=== PATIENT | female | born 1930 | race Caucasian/White ===

== ENCOUNTER 2017-01-21 09:28 | Inpatient (IN) | payer MEDICARE, OTHER ==
[~2017-01-21] VITALS: Ht 154.9 cm; Wt 56.2 kg
--- NOTE | ~2017-01-21 | HP ---
PATIENT'S NAME: TERRI CHEEMA [facility] AGE: 86 Y [address] ROOM: [place] [id number] LOCATION: [facility] ADMIT DATE: 01/21/2017 History & Physical DISCHARGE DATE: FAMILY PHYSICIAN: PHYSICIAN, UNKNOWN ATTENDING PHYSICIAN: Doris Pierre DATE OF SERVICE: 01/21/2017 PATIENT IDENTIFICATION: Terri Cheema is an 86-year-old female referred from [facility]. REASON FOR REFERRAL: Brain hemorrhage. HISTORY OF PRESENT ILLNESS: The patient states that she fell while trying to get out of bed this morning. There was no loss of consciousness. The patient was taken to [facility] where she had a head CT scan done. The CT scan showed a small left thalamic hemorrhage. The patient was therefore transferred here for further evaluation and treatment. The patient is on Coumadin and INR is 3.2. PAST MEDICAL HISTORY: Not available at this time. CURRENT MEDICATIONS AND ALLERGIES: Other than Coumadin the rest of the patient's drugs is not known at this time. FAMILY HISTORY: No family history relevant to present problems. SOCIAL HISTORY: The patient lives at home with her . She is still driving. REVIEW OF SYSTEMS: A 10-point review of systems was carried out. The only abnormal finding was as described in the history of present illness. PHYSICAL EXAMINATION: GENERAL: The patient is an elderly female who was alert and cooperative throughout the examination. VITAL SIGNS: Her blood pressure was initially elevated, but she had some medicine at [facility] and the blood pressure came down. According to the transfer notes, 187/125, heart rate 53. NEUROLOGIC: Speech is coherent, but slightly slurred. The patient is PATIENT'S NAME: TERRI CHEEMA [facility] AGE: 86 Y [address] ROOM: [id number] [place] [id number] LOCATION: [facility] ADMIT DATE: 01/21/2017 History & Physical DISCHARGE DATE: FAMILY PHYSICIAN: PHYSICIAN, UNKNOWN ATTENDING PHYSICIAN: Doris Pierre oriented. Cranial nerves, the patient has a right facial droop. Motor examination, the patient has right upper extremity and right lower extremity weakness. She is at least antigravity in the right leg, but less so in the right arm. HEENT: Her head is atraumatic. Eyes and ears, no evidence of trauma. SKIN: No skin rashes or skin masses. CARDIOVASCULAR: Heart sounds present. RESPIRATORY: The patient is not short of breath at bedside. REVIEW OF IMAGING STUDIES: The patient has had a head CT scan done. The head CT scan shows a left thalamic hemorrhage. There is no midline shift or mass effect. ASSESSMENT: An 86-year-old female with left thalamic bleed causing right hemiparesis. PLAN: The patient is being admitted for blood pressure control. She will also get some INR to reverse her Coumadin. There is no indication for neurosurgical intervention at this time. I will follow the patient while she is in hospital. MD SANDOR CYR/cristóbal /[id number] D: [id number] T: [id number] HISTORY & PHYSICAL
--- NOTE | ~2017-01-21 | CON ---
PATIENT'S NAME: TERRI CHEEMA [facility] AGE: 86 Y [address] ROOM: [id number] [place] [address] LOCATION: GICU ADMIT DATE: 01/21/2017 Consultation DISCHARGE DATE: FAMILY PHYSICIAN: Everton Gould MD ATTENDING PHYSICIAN: Doris Pierre REFERRING PHYSICIAN: Kain Stone MD A consult for Dr. Pierre. HISTORY OF PRESENT ILLNESS: This pleasant, 86-year-old lady, who lives with her here in [place], is referred for rehab/GIRP evaluation, admitted on 01/21/2017 status post a falling incident at home. She did not hit her head, and she did not lose consciousness. CT scan showed left thalamic hemorrhage, was watched carefully. 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 She finds herself less able to remember names, very little slurring of speech. Voice is clear and not wet. She is minimally numb on the right upper lip on the outside, feeling like she is lagging a little bit behind in movement. No visual cut. No neglect at the present time. Denied any headaches. No dizziness. No nausea. No vomiting. She is markedly weak in the right upper extremity and practically trace movement; and right lower extremity, she is 3 to 3+ at best. She has good bowel and bladder control. Denied any chest pain. No shortness of breath. PAST HISTORY OF SIGNIFICANCE: 1. Coronary artery disease, status post stenting x3. 2. Atrial fibrillation, now in sinus rhythm. 3. 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 4. Dyslipidemia. 5. Hypertension. 6. Status post renal artery stenting. PHYSICAL EXAMINATION: GENERAL: She is alert, oriented. Cannot sometimes name, anomia. VITAL SIGNS: Blood pressure 173/84, temperature 98.3, pulse 57, and respiration rate 13. She is 5 feet 1 inch tall and weighs 56.8 kg. PATIENT'S NAME: TERRI CHEEMA [facility] AGE: 86 Y [address] ROOM: [id number] [place] [address] LOCATION: [facility] ADMIT DATE: 01/21/2017 Consultation DISCHARGE DATE: FAMILY PHYSICIAN: Everton Gould MD ATTENDING PHYSICIAN: Doris Pierre MEDICATIONS: She is on the following medications: 1. Catapres. 2. Tylenol. 3. Lisinopril. 4. Zofran. 5. Morphine sulfate. 6. NaCl 0.9%. 7. Nitroglycerin. ASSESSMENT AND PLAN: She is now on PT, OT, and speech, which I will continue. I feel that this lady will benefit from intensive rehabilitation for about 2 to 3 weeks, aiming to discharge at modified independence. All the above was explained to her. She should not drive until she is re-evaluated. Thank you for this referral. I will take her as soon as I have an opening. MD MOHSEN GUZMÁN/modl /[id number] d: 01/24/17 1315 t: 01/24/17 1709, CONSULTATION REPORT
--- NOTE | ~2017-01-21 | CON ---
PATIENT'S NAME: TERRI CHEEMA [facility] AGE: 86 Y [address] ROOM: [place] [address] LOCATION: GICU ADMIT DATE: 01/21/2017 Consultation DISCHARGE DATE: FAMILY PHYSICIAN: PHYSICIAN, UNKNOWN ATTENDING PHYSICIAN: Doris Pierre DATE OF CONSULTATION: 01/21/2017 REASON FOR CONSULTATION: Blood pressure management in the setting of intracranial hemorrhage. HISTORY OF PRESENT ILLNESS: An 86-year-old very pleasant lady, presented to the [facility], and subsequently transferred here. When she got up this morning, could not get out of the bed and fell and hit her head as well. Shortly after, the noted that she was having difficulty finding words as well as drooping of her right face. A CAT scan was done at the [facility], which I do not have the report yet, but per chart review and verbally, it appears that she had right thalamic bleeding. She was transferred here for further medical care. On my encounter, she is very anxious about the whole situation. She denied any headache, any trouble with the eyes, any trouble swallowing, any chest pain, any shortness of breath, any headache, any abdominal pain, any constipation, any diarrhea, any burning on urination, or any extremity swelling. Her only complaint is that she is having difficulty finding words to express herself. She is very anxious to get out of the bed, walk, and do her daily activities. REVIEW OF SYSTEMS: All other systems reviewed and were negative except what is mentioned in the HPI. PAST MEDICAL HISTORY: Significant for: 1. Coronary artery disease with coronary stenting 3 times in the past. 2. Atrial fibrillation. Rhythm control as well as on oral anticoagulation with Coumadin levels of 3.1 today. 3. 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 4. Hyperlipidemia. 5. Hypertension. 6. Previous renal stents as well. MEDICATIONS: We are reconciling medications at this moment. PATIENT'S NAME: TERRI CHEEMA [facility] AGE: 86 Y [address] ROOM: [place] [address] LOCATION: GICU ADMIT DATE: 01/21/2017 Consultation DISCHARGE DATE: FAMILY PHYSICIAN: PHYSICIAN, UNKNOWN ATTENDING PHYSICIAN: Doris Pierre FAMILY HISTORY: Significant for coronary artery disease in mother, father, as well as brother. ALLERGIES: NO KNOWN DRUG ALLERGIES. SOCIAL HISTORY: Never a smoker. No alcohol or drug abuse. PHYSICAL EXAMINATION: VITAL SIGNS: Blood pressure on my encounter was 123/80, 62, 99% on room air, 16. GENERAL: In mild acute distress due to this situation. HEAD: No deformity noted. EYES: Nonicteric. No pallor. OROPHARYNX: Moist mucous membranes. CARDIOVASCULAR: Bradycardic. S1 and S2. No murmurs, gallops, or rubs. LUNGS: Clear to auscultation bilaterally. ABDOMEN: Soft, nontender, and nondistended. Bowel sounds are present. EXTREMITIES: No clubbing, cyanosis, or edema. NEUROLOGIC: Right facial droop noted. Power 5/5 in all extremities. PSYCHIATRIC: Anxious. Otherwise, appropriate speech. MUSCULOSKELETAL: No muscle tenderness or swelling noted. ASSESSMENT/PLAN: 1.ICH 2.Hypertensive emergency Continue nicardipine gtt. until swallow testing is done. Will follw MD MIRANDA ARORA/cirstóbal /[id number] d: 01/21/17 1717 t: 01/22/17 0821, CONSULTATION REPORT
--- NOTE | ~2017-01-21 | DS ---
PATIENT'S NAME: TERRI CHEEMA [facility] AGE: 86 Y [address] ROOM: [id number] [place], [place] [address] LOCATION: GICU ADMIT DATE: 01/21/2017 Discharge Summary DISCHARGE DATE: 01/29/2017 FAMILY PHYSICIAN: Everton Gould MD ATTENDING PHYSICIAN: Doris Pierre REASON FOR ADMISSION: The patient presented with having fallen at home. She was initially taken to [facility] and head CT scan showed a brain hemorrhage, and she was therefore transferred to [facility] for further treatment. On examination, the patient had a right facial droop and weakness in the right upper and lower extremities. Imaging studies performed. Head CT scan showed a left thalamic hemorrhage. TREATMENT RENDERED: The patient was admitted to hospital for control of blood pressure, and she was gently treated by Neurosurgery and hospitalist. Over the next couple of days, the patient's speech improved and her weakness also got better. By the 29 of January, she had met the requirements for transfer to inpatient rehab and was transferred on that day. The patient to be followed up in the Neurosurgery Clinic after release from rehab to determine how much recovery she got back. DORIS PIERRE MD CNO/modl /[id number] d: 02/15/175 t: 02/21/17 1614, DISCHARGE SUMMARY
[~2017-01-21 09:28] MED LIST changes: -ALLERGY RELIEF25 MG PO; -ASPIRIN (CHILDR81 MG PO; -COLACE100 MG PO; -COUMADIN **IA2.5 MG PO; -DULCOLAX10 MG R; -K-TAB 10MEQ10 MEQ PO; -LEVOTHROID (SY50 MCG PO; -MILK OF MA400 MG/5 M PO; -MYLICON OR GAS-80 MG PO; -NORVASC5 MG PO; -PEPCID20 MG PO; -PRAVACHOL40 MG PO; -PRINIVIL (ZESTR20 MG PO; -ZANTAC150 MG PO
[2017-01-21 17:56] LABS: INR - (THERAPEUTIC) 1.66 (0.92-1.07); PROTIME 17.5 SECONDS (9.8-11.4)
[2017-01-21] MEDS ORDERED: PRAVACHOL40 MG PO (19:14)
[2017-01-21] MEDS ORDERED: LEVOTHROID (SY50 MCG PO (19:15)
[2017-01-21] MEDS ORDERED: ZANTAC150 MG PO (19:16)
[2017-01-21] MEDS ORDERED: ALLERGY RELIEF25 MG PO (19:19)
[2017-01-22 05:17] LABS: BASOPHIL % 0.5 %; EOSINOPHIL # 0.1 K/uL (0.0-0.5); EOSINOPHIL % 1.9 %; HEMOGLOBIN 13.4 g/dL (10.0-15.0); IMMATURE GRANULOCYTE % 0.3 %; LYMPHOCYTE # 1.3 K/uL (0.8-4.0); MCH 32.6 pg (27.0-34.0); MCHC 32.7 gm/dL (32.0-36.5); MCV 99.8 fl (83.0-98.0); MONOCYTE # 0.6 K/uL (0.0-1.0); MONOCYTE % 10.6 %; MPV 8.7 fl (9.4-12.4); NEUTROPHIL # (ANC) 3.7 K/uL (1.8-7.8); NEUTROPHIL % 63.7 %; NRBC % 0 /100WBC (0-0.00); PLATELET COUNT 240 K/uL (150-450); WBC 5.8 K/uL (4.0-11.0)
[2017-01-22 05:18] LABS: RBC 4.11 M/uL (3.00-5.00)
[2017-01-22 05:31] LABS: ANION GAP 12.4 (10.0-19.0); BLOOD UREA NITROGEN 19 mg/dL (6-24); CALCIUM 8.2 mg/dL (8.5-10.5); CHLORIDE 109 mMol/L (96-110); CO2 23 mMol/L (22-32); CREATININE 0.7 mg/dL (0.5-1.1); ESTIMATED GFR (MDRD EQUATION) > 60; POTASSIUM 3.4 mMol/L (3.7-5.1); SODIUM 141 mMol/L (135-145)
[2017-01-22] MEDS ORDERED: COUMADIN **IA2.5 MG PO (16:38)
[2017-01-24 12:54] LABS: INR - (THERAPEUTIC) 1.01 (0.92-1.07); PROTIME 10.6 SECONDS (9.8-11.4)
[2017-01-24 12:59] LABS: ANION GAP 11.7 (10.0-19.0); CALCIUM 8.2 mg/dL (8.5-10.5); MAGNESIUM 2.1 mg/dL (1.8-2.6); POTASSIUM 3.7 mMol/L (3.7-5.1)
== END 2017-01-29 10:00 | DRG 86 ==
LOC: GICU 09:57
PROVIDERS: Internal Medicine; Nurse Practitioner Family; ADMIT Neurological Surgery
PROC: 30233K1 Transfusion of Nonautologous Frozen Plasma into Peripheral Vein, Percutaneous Approach (ICD-10-PCS; principal; 2017-01-21)
PROC: 30233K1 Transfusion of Nonautologous Frozen Plasma into Peripheral Vein, Percutaneous Approach (ICD-10-PCS; 2017-01-22)
DX: S06.300A Unspecified focal traumatic brain injury without loss of consciousness, initial encounter (principal); G81.91 Hemiplegia, unspecified affecting right dominant side; I48.0 Paroxysmal atrial fibrillation; W06.XXXA Fall from bed, initial encounter; I10 Essential (primary) hypertension; I25.10 Atherosclerotic heart disease of native coronary artery without angina pectoris; I16.0 Hypertensive urgency; R47.1 Dysarthria and anarthria; R29.810 Facial weakness; E78.5 Hyperlipidemia, unspecified; E03.9 Hypothyroidism, unspecified; R79.1 Abnormal coagulation profile; Z85.3 Personal history of malignant neoplasm of breast; Z79.01 Long term (current) use of anticoagulants; Z95.5 Presence of coronary angioplasty implant and graft; Z95.828 Presence of other vascular implants and grafts; Z82.49 Family history of ischemic heart disease and other diseases of the circulatory system
CPT/HCPCS: A9270; J7030; J7050; J7060; P9017

== ENCOUNTER → 2017-01-21 | Outpatient (CLI) | payer MEDICARE, OTHER ==
[~2017-01-21] MED LIST: ACETAMINOPHEN1 EACH PO; ACETAMINOPHEN500 M1 PO; ALLERGY RELIEF25 MG PO; APRESOLINE10 MG PO; ASPIR 8181 MG PO; ASPIRIN (CHILDR81 MG PO; CENTRUM COMPLE1 EACH PO; COLACE100 MG PO; CORDARONE,PACE200 MG PO; COUMADIN **IA2.5 MG PO; COUMADIN2.5 MG PO; DULCOLAX10 MG R; K-TAB 10MEQ10 MEQ PO; LEVOTHROID (SY50 MCG PO; MILK OF MA400 MG/5 M PO; MYLICON OR GAS-80 MG PO; NITROSTAT0.4 MG SL; NORVASC5 MG PO; OSCAL + D500 MG PO; PEPCID20 MG PO; PLAVIX75 MG PO; PRAVACHOL40 MG PO; PRINIVIL (ZESTR20 MG PO; PROTONIX40 MG PO; ZANTAC150 MG PO; ZOCOR20 MG PO; ZOLOFT25 MG PO
== END | disposition disaster alternative care site (69) ==
LOC: GAMB 09:30
DX: I63.9 Cerebral infarction, unspecified (principal); G81.90 Hemiplegia, unspecified affecting unspecified side; Z79.01 Long term (current) use of anticoagulants; Z79.899 Other long term (current) drug therapy
CPT/HCPCS: A0425; A0428

== ENCOUNTER → 2017-01-21 | Outpatient (CLI) | payer MEDICARE, OTHER | END | disposition disaster alternative care site (69) | LOC: GAMB 07:56 | DX: R53.1 Weakness (principal); E11.9 Type 2 diabetes mellitus without complications; R41.0 Disorientation, unspecified; R47.81 Slurred speech; R29.810 Facial weakness; Z90.11 Acquired absence of right breast and nipple; Z79.899 Other long term (current) drug therapy; W19.XXXA Unspecified fall, initial encounter | CPT/HCPCS: A0422; A0425; A0427; A0428; J7030 ==

== ENCOUNTER 2017-01-29 10:26 | Inpatient (IN) | payer MEDICARE, OTHER ==
[~2017-01-29] VITALS: Ht 152.4 cm; Wt 55.6 kg
--- NOTE | ~2017-01-29 | CON ---
PATIENT'S NAME: TERRI CHEEMA [facility] AGE: 86 Y [address] ROOM: [id number] [place], [place] [address] LOCATION: [facility] ADMIT DATE: 01/29/2017 Consultation DISCHARGE DATE: FAMILY PHYSICIAN: Everton Gould MD ATTENDING PHYSICIAN: Kain Stone DATE OF CONSULTATION: 02/12/2017 REFERRING PHYSICIAN: Doris Pierre MD REQUESTING PHYSICIAN: Kain Stone MD. DATA: The patient was seen today on a one-to-one. The case was discussed with the nurse for vital signs and collateral information. The patient is an 86-year- old, female, currently admitted to [facility] at an inpatient rehab. DIAGNOSIS: At time of this evaluation, adjustment disorder with depression. RECOMMENDATION: After talking to the patient about risks, benefits, and side effects, she voiced understanding, consent, and preference for a trial on mirtazapine 15 mg every nighttime. HISTORY OF PRESENT ILLNESS: This lady ended up in the hospital recently after falling from her bed, ended up having an intracranial hemorrhage, confirmed by a CT scan, and having issues with her gait. The patient has been since sad. There was a trial on Lexapro, that did not go too well, so a psychiatric consultation was requested. I came to [facility], reviewed electronic records, the paper records, talked to the nurse for collateral information, talked to Dr. Stone for collateral information, and finally I see the patient on a one-to-one. The patient is a nice lady who is cooperative, and she states that since actually falling and staying in the hospital, she is getting somewhat depressed. She thinks she is getting better, but again she is having issues with her sleep and appetite and almost daily crying. She says that that has never happened before that and she blames the lack of sleep. The patient has never been psychotic, manic, or hypomanic. No issues with obsession and compulsion, eating disorder, post traumatization, or gambling. At the present time, she is not on any psychotropic medication. SUBSTANCE USE HISTORY: Noncontributory. The patient is not a smoker, a drinker, or a drug user. PATIENT'S NAME: TERRI CHEEMA [facility] AGE: 86 Y [address] ROOM: [place] [address] LOCATION: [facility] ADMIT DATE: 01/29/2017 Consultation DISCHARGE DATE: FAMILY PHYSICIAN: Everton Gould MD ATTENDING PHYSICIAN: Kain Stone PAST PSYCHIATRIC HISTORY: Noncontributory. The patient has never been seen in an inpatient psychiatric facility and has never tried to kill herself. No therapy or psychotropic medication at the present time. MEDICAL HISTORY: Per H and P of Dr. Stone and Dr. Pierre. PERSONAL HISTORY: She is from [place]. 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 HISTORY OF ABUSE: Noncontributory. The patient has never been abused physically, sexually, or psychologically. FAMILY HISTORY: Noncontributory. MENTAL STATUS EXAMINATION: This is a lady who is cooperative, good hygiene, good eye contact. No psychomotor agitation or retardation. Speech is normal in volume, tone, and production. Mood is described as depressed. Affect is broad and appropriate to thought content. Thought content is relevant by the patient denying any suicidal or homicidal ideation, denying any auditory or visual hallucination, denying any delusional thoughts. Thought was coherent, congruent. No loosening of association. Insight and judgment seem to be fair. Memory is within normal limits. She is alert and oriented. Intelligence is average. STRENGTHS: Intelligence, access to services. BARRIERS: None currently other than physical health. AFTAB MENDEZ MD HG/modl PATIENT'S NAME: TERRI CHEEMA [facility] AGE: 86 Y [address] ROOM: [place] [address] LOCATION: [facility] ADMIT DATE: 01/29/2017 Consultation DISCHARGE DATE: FAMILY PHYSICIAN: Everton Gould MD ATTENDING PHYSICIAN: Kain Stone /[id number] d: 02/12/172004 t: 02/17/17 0751, CONSULTATION REPORT
--- NOTE | ~2017-01-29 | CON ---
PATIENT'S NAME: TERRI CHEEMA [facility] AGE: 86 Y [address] ROOM: [id number] [place], [place] [address] [facility] ADMIT DATE: 01/29/2017 Consultation DISCHARGE DATE: FAMILY PHYSICIAN: Everton Gould MD ATTENDING PHYSICIAN: Kain Rowe DATE OF CONSULTATION: 01/29/2017 REFERRING PHYSICIAN: Doris Pierre MD TEAM MEMBERS REPORTING: Include Dr. Rowe; Gabi Phelps, social insurance adviser; Dian Juárez, RN; Anna Maki, PT; Mariza Astorga, PT; Kassie Tripp, OT; Crystal Kaye, Speech Therapy; Madeleine Underwood, therapeutic rec; and Sister Tara Alvarenga, pastoral Care. CURRENT STATUS: Terri is an 86-year-old woman, admitted to our inpatient rehab unit on January 29, 2017 following a CVA with right-sided weakness. 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 The patient is continent of bowel and bladder. Her bottom is red. Takes Tylenol occasionally for headache. The patient can complete all of her transfers at minimal assistance. She can ambulate 80 feet with minimal assistance. If the patient turns, she requires more of a moderate assistance level. Her goals have been set for standby to mod I. The patient can dress her upper body at minimal assistance; grooming, minimal assistance; and toilet transfers, minimal assistance. She is moderate assistance for toileting. She does occasionally lose her balance. Her goals for OT have been set for mod I, comprehension is at standby assistance, language and expression, minimal assistance. She is on a mechanical soft, nectar thickened liquid diet. The patient is open to pastoral care. DISCHARGE PLAN: The patient is receiving 3 hours of PT, OT, and speech Friday through Friday. The patient has daily rehab, nursing, and physiatry involvement as well as therapeutic recreational services 4 days per week. The patient has shown functional improvement and is progressing. Please see her plan of care for specific goals. Plan is for patient to discharge in approximately 4 weeks. Plan is for patient to return to home with her if at all possible. GABI PHELPS FOR KAIN ROWE MD PATIENT'S NAME: TERRI CHEEMA [facility] AGE: 86 Y [address] ROOM: [place] [address] [facility] ADMIT DATE: 01/29/2017 Consultation DISCHARGE DATE: FAMILY PHYSICIAN: Everton Gould MD ATTENDING PHYSICIAN: Kain Rowe TD/kapill /[id number] d: 02/03/17 1058 t: 03/07/17 1137, CONSULTATION REPORT
--- NOTE | ~2017-01-29 | CON ---
PATIENT'S NAME: TERRI CHEEMA [facility] AGE: 86 Y [address] ROOM: [address] [place], [place] [address] LOCATION: [facility] ADMIT DATE: 01/29/2017 Consultation DISCHARGE DATE: FAMILY PHYSICIAN: Everton Gould MD ATTENDING PHYSICIAN: Kain Rowe DATE OF CONSULTATION: 02/18/2017 REFERRING PHYSICIAN: Doris Pierre MD TEAM MEMBERS REPORTING: Dr. Rowe; Gabi Phelps, psychiatric social worker; Kari Nuñez, RN; Anna Maki, PT; Mariza Astorga, PT; Kassie Tripp, OT; Crystal Kaye, Speech Therapy; Madeleine Underwood, therapeutic rec; and Sister Tara Kiser, Pastoral Care. CURRENT STATUS: Terri is an 86-year-old woman, admitted to our inpatient rehab unit following a CVA. The patient is currently continent of bowel and bladder. She is on a regular diet. Prealbumin is 27, takes healthy shakes twice a day, but has been refusing. She can walk 150 feet at standby assistance using a front- wheeled walker. She requires contact guard assistance using a single-point cane. She can climb 12 stairs at contact guard assistance. She has met 4/4 short-term PT goals. The patient can dress her upper body at minimal assistance; lower body, standby; grooming and bathing, standby; toilet and shower transfers, contact guard assistance; toileting, contact guard assistance to standby assistance; and feeding, standby assistance. She has met 1/13 long-term OT goals. Comprehension is standby; language expression mod I; memory and problem solving, standby to mod I; swallowing, standby to mod I, occasional coughing; car transfers are currently contact guard assistance. DISCHARGE PLAN: The patient is receiving 3 hours of PT/OT, and speech Friday through Friday. The patient has daily rehab, nursing, and physiatry involvement as well as therapeutic recreational services. The patient has shown functional improvement and is progressing. Please see her plan of care for specific goals. Plan is for patient to discharge in approximately 10 to 14 days. Plan is for patient to return to home with her . GABI PHELPS FOR KAIN ROWE MD TD/modl PATIENT'S NAME: TERRI CHEEMA [facility] AGE: 86 Y [address] ROOM: [place] [address] LOCATION: [facility] ADMIT DATE: 01/29/2017 Consultation DISCHARGE DATE: FAMILY PHYSICIAN: Everton Gould MD ATTENDING PHYSICIAN: Kain Rowe /[id number] d: 02/23/171810 t: 03/07/17 1145, CONSULTATION REPORT
--- NOTE | ~2017-01-29 | CON ---
PATIENT'S NAME: TERRI CHEEMA [facility] AGE: 86 Y [address] ROOM: [address] [place] [address] LOCATION: [facility] ADMIT DATE: 01/29/2017 Consultation DISCHARGE DATE: FAMILY PHYSICIAN: Everton Gould MD ATTENDING PHYSICIAN: Kain Rowe DATE OF CONSULTATION: 02/11/2017 REFERRING PHYSICIAN: Doris Pierre MD TEAM MEMBERS REPORTING: Dr. Rowe; Gabi Phelps, social services specialist; Kari Nuñez, RN; Anna Maki, PT; Mariza Astorga, PT; Kassie Tripp, OT; Crystal Musa, Speech Therapy; Madeleine Underwood, therapeutic rec; and Sister Tara Kiser, [facility]. CURRENT STATUS: Terri is an 86-year-old woman, admitted to our inpatient rehab unit following a CVA with right hemiplegia. The patient has been very labile. Psychiatric consult has been ordered to see if there is a medication that the patient can be started on to assist with this. The patient is continent of bowel and bladder. Takes Tylenol at bedtime. She can transfer, sit to supine and supine to sit at standby. Sit to stand and stand to sit, contact guard assistance and bed to chair and chair to bed, contact guard assistance. She can walk 150 feet with handheld assistance at minimal assistance. Balance is improving. She can climb 4 stairs with 2 railings at minimal assistance. She has met 3/4 short-term PT goals. The patient can dress her upper body and lower body, standby. She can groom independently from a seated position. Bathing, standby. Toilet and shower transfers, contact guard assistance. Toileting, contact guard assistance. Her right arm is improving. She has met 4/5 short-term OT goals. Comprehension is at standby to mod I; language and expression, standby with word finding; memory, standby; and problem solving, minimal to standby. Family training went well. They do plan on taking her on outing. The patient continues to work on coordination with her right hand. DISCHARGE PLAN: The patient is receiving 3 hours of PT, OT, and speech Friday through Friday. The patient has daily rehab, nursing, and physiatry involvement as well as therapeutic recreational services. The patient has shown functional improvement and is progressing. Please see her plan of care for specific goals. Plan is for the patient to discharge in approximately 2 weeks. GABI PHELPS FOR KAIN ROWE MD PATIENT'S NAME: TERRI CHEEMA [facility] AGE: 86 Y [address] ROOM: [place] [address] LOCATION: [facility] ADMIT DATE: 01/29/2017 Consultation DISCHARGE DATE: FAMILY PHYSICIAN: Everton Gould MD ATTENDING PHYSICIAN: Kain Rowe TD/cristóbal /[id number] d: 02/23/17 1807 t: 03/07/17 1143, CONSULTATION REPORT
--- NOTE | ~2017-01-29 | CON ---
PATIENT'S NAME: TERRI CHEEMA [facility] AGE: 86 Y [address] ROOM: [address]3441 [place] [address] LOCATION: [facility] ADMIT DATE: 01/29/2017 Consultation DISCHARGE DATE: FAMILY PHYSICIAN: Everton Gould MD ATTENDING PHYSICIAN: Kain Rowe DATE OF CONSULTATION: 02/05/2017 REFERRING PHYSICIAN: Doris Pierre MD TEAM MEMBERS REPORTING: Include Dr. Rowe; Gabi Phelps, social worker assistant; Kari Nuñez, RN; Anna Maki, PT; Mariza Astorga, PT; Kassie Tripp, OT; Crystal Kaye, Speech Therapy; Madeleine Underwood, Therapeutic Rec; and Sister Tara Alvarenga, Pastoral Care; and Soraida from Pharmacy. CURRENT STATUS: Kavya Lucas is an 86-year-old woman, admitted to our inpatient rehab unit on January 29, 2017, following a left thalamic stroke. She has a history of atrial fibrillation and coronary artery disease. 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 The patient is occasionally incontinent of bowel and bladder. She does have some edema, rarely complains of pain. She is on a mechanical soft diet with nectar thickened liquids. She takes a health shake b.i.d. Her prealbumin is 24. She can transfer sit to supine and supine to sit at standby, sit to stand and stand to sit, contact guard assistance; and bed to chair and chair to bed, contact guard assistance. She can walk 50-75 feet hand-held assistance or using a front-wheeled walker at minimal assistance. She can climb 4 stairs with 2 railings at minimal assistance. The patient's mood is very labile. She has met 1/9 short-term PT goals. The patient can dress her upper body at minimal assistance, lower body moderate assistance; grooming, standby; bathing standby, toilet and shower transfers, minimal assistance; and toileting, max assistance. Her goals have been set for standby assistance and she has met 3/6 short-term OT goals. The patient's comprehension is at minimal assistance to standby assistance due to poor processing. Language and expression, standby. Memory minimal assistance. Problem solving, minimal assistance. She does cough occasionally. We are going to advance her diet to regular. The patient has been very open to pastoral care. Pharmacy continues to watch medications. DISCHARGE PLAN: The patient is receiving 3 hours of PT, OT, and speech Friday through Friday. The patient has daily rehab nursing and Physiatry involvement as well therapeutic recreational services. The patient has shown functional PATIENT'S NAME: TERRI CHEEMA [facility] AGE: 86 Y [address] ROOM: [place] [address] LOCATION: [facility] ADMIT DATE: 01/29/2017 Consultation DISCHARGE DATE: FAMILY PHYSICIAN: Everton Gould MD ATTENDING PHYSICIAN: Kain Rowe and is progressing. Please see her plan of care for specific goals. Plan is for patient to discharge in approximately 3 weeks. Plan is for patient hopefully to be able to return to home with her here in [place]. The patient's may need additional assistance depending on how the patient progresses. GABI PHELPS FOR KAIN ROWE MD TD/modl /[id number] d: 02/23/17 1656 t: 03/07/17 1140, CONSULTATION REPORT
--- NOTE | ~2017-01-29 | HP ---
PATIENT'S NAME: TERRI CHEEMA [facility] AGE: 86 Y [address] ROOM: [place] [address] LOCATION: [facility] ADMIT DATE: 01/29/2017 History & Physical DISCHARGE DATE: FAMILY PHYSICIAN: Everton Gould MD ATTENDING PHYSICIAN: Kain Stone DATE OF SERVICE: HISTORY OF PRESENT ILLNESS: This 86-year-old lady is admitted for continuous medical treatment and intensive rehabilitation to rehab unit at [facility] on 01/29/2017. 1. Unstable gait. 2. Dependent in activities of daily self-care. 3. Status post left thalamic hemorrhagic stroke with history of falling at home and hitting her head. 4. With marked weakness in the right upper more than right lower extremity with slurring of speech, decreased attention to the right side, and slight facial droop on the right side with the onset. PHYSICAL EXAMINATION: GENERAL: She is, at the present time, alert, fairly well oriented on admission. VITAL SIGNS: Blood pressure 163/72, temperature 97.6, pulse 57, and respiration rate 16. She is 5 feet 1 inch and weighs 56.2 kg. ALLERGIES: SHE IS ALLERGIC TO OMEPRAZOLE AND PROTON PUMP INHIBITORS. PAST MEDICAL HISTORY: Past history of significant as follows: 1. Coronary artery disease, status post coronary vessels x3 stenting. 2. Atrial fibrillation. 3. 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 4. Dyslipidemia. 5. Hypertension. 6. Status post previous renal artery stenting. 7. History of recurrent hypoxia. 8. History of bilateral mastectomy, no recurrence. ASSESSMENT AND PLAN: She is, at the present time, weightbearing as tolerated, and upon evaluation by Speech, it is recommended that she will have a mechanical soft diet with nectar thick liquids. Continue Hernandez water protocol. She has been having PATIENT'S NAME: TERRI CHEEMA [facility] AGE: 86 Y [address] ROOM: [place] [address] LOCATION: [facility] ADMIT DATE: 01/29/2017 History & Physical DISCHARGE DATE: FAMILY PHYSICIAN: Everton Gould MD ATTENDING PHYSICIAN: Kain Stone swallowing problems for quite some time, even before the onset of the present symptoms. She will be admitted for intensive rehabilitation and continuous medical treatment, put on PT, OT, and speech 3 hours per day, 15 hours per week, for about 3 weeks, aiming to discharge home at modified independence. Today and on 01/30, her vitals were as follows: Blood pressure 91/48, temperature 97.8, pulse 84, respiration rate 16. Her CBC is as follows: White BC 5.9, RBC 3.83, hemoglobin 12.9, hematocrit 38.5, and platelets 258. CMS: Sodium 141, potassium 3.5, chloride 107, CO2 of 28, BUN 29, creatinine 1.0, and glucose 89. UA is within normal limits. Prealbumin is 24. She could ambulate 20 feet and 30 feet x1 with a paco-walker and cuing moderate for safety. We will put on intensive PT, OT, and speech 3 hours per day, 15 hours per week for the coming 3 weeks, aiming to discharge at modified independence. We will keep on Dr. Pierre and hospitalist census to follow as necessary. All the above was explained to her in detail. She verbalized understanding and agreement with plan of care. MD MOHSEN GUZMÁN/cristóbal /[id number] D: 229 T: 319 HISTORY & PHYSICAL
--- NOTE | ~2017-01-29 | CON ---
PATIENT'S NAME: TERRI CHEEMA [facility] AGE: 86 Y [address] ROOM: G3441 [place], [place] [address] LOCATION: [facility] ADMIT DATE: 01/29/2017 Consultation DISCHARGE DATE: 02/28/2017 FAMILY PHYSICIAN: Everton Gould MD ATTENDING PHYSICIAN: Kain Rowe DATE OF CONSULTATION: 02/25/2017 REFERRING PHYSICIAN: Doris Pierre MD TEAM MEMBERS REPORTING: Dr. Rowe; Gabi Phelps, executive secretary social welfare; inpatient rehab nursing staff; Anna Maki, PT; Mariza Astorga, PT; Kassie Tripp, OT; Crystal Kaye, Speech Therapy; Madeleine Underwood, therapeutic rec; and Sister Tara Kiser, [facility]. CURRENT STATUS: Terri is an 86-year-old woman, admitted to our inpatient rehab unit following a CVA. The patient is currently continent of bowel and bladder. No skin issues. She is on a regular diet currently at low nutritional risk. She can complete all of her transfers at mod I. She can complete ambulation 300 feet to 400 feet with a front-wheeled walker at mod I. She can climb 12 stairs with two railings at contact guard assistance. She can use a cane with standby assistance. PT is recommending a walker overall and supervision in her home. She has met 3/3 short-term PT goals. The patient can dress her upper and lower body at standby, grooming and bathing standby, toilet and shower transfers standby, toileting standby, and feeding standby. She has met 3/13 long-term OT goals. Comprehension is at standby to mod I. Language and expression, standby to mod I. Memory and problem solving, standby to mod I. Car transfers are currently standby to mod I. DISCHARGE PLAN: The patient is receiving 3 hours of PT, OT, and Speech Friday through Friday. The patient has daily rehab nursing and physiatry involvement as well as therapeutic rec services. The patient has shown functional improvement and is progressing. Please see her plan of care for specific goals. Plan is for patient to discharge on Tuesday, February 28, 2017, with home health care. GABI PHELPS FOR KAIN ROWE MD TD/modl PATIENT'S NAME: TERRI CHEEMA [facility] AGE: 86 Y [address] ROOM: [place] [address] LOCATION: [facility] ADMIT DATE: 01/29/2017 Consultation DISCHARGE DATE: 02/28/2017 FAMILY PHYSICIAN: Everton Gould MD ATTENDING PHYSICIAN: Kain Rowe /[id number] d: 03/17/172319 t: 03/31/17 1127, CONSULTATION REPORT
--- NOTE | ~2017-01-29 | DS ---
PATIENT'S NAME: TERRI CHEEMA [facility] AGE: 86 Y [address] ROOM: [address] [place] [address] LOCATION: [facility] ADMIT DATE: 01/29/2017 Discharge Summary DISCHARGE DATE: 02/28/2017 FAMILY PHYSICIAN: Everton Gould MD ATTENDING PHYSICIAN: Kain Rowe This lady, who is 86 years old, was admitted to rehab unit on 01/29/2017, was discharged to go home with Home Health on 02/28/2017. She was admitted with unstable gait, dependent activity of daily and self- care. Status post left thalamic hemorrhagic stroke, retrobulbar with inability to perform with the right upper and lower extremity, slurring of speech, facial weakness, and some disorientation. She is at the present time doing well, alert and oriented x3. She is at the present time on the following medications: 1. Tylenol Extra Strength 500 mg at bedtime. 2. Cordarone 100 mg daily. 3. Norvasc 5 mg p.o. daily, hold if systolic blood pressure below 120. 4. Aspirin 81 mg p.o. daily. 5. Os-Lamont Plus D 500 mg p.o. daily. 6. Colace 100 mg p.o. daily. 7. Lovenox versus Coumadin per couture dressmaker, hospitalist, and its dosing and followup for PT and INR. 8. Pepcid 20 mg p.o. daily. 9. Levothroid 50 mcg p.o. at bedtime. 10. Lisinopril 20 mg p.o. daily. 11. Micro-K 40 mEq p.o. daily. 12. Pravachol 40 mg p.o. daily. 13. Tylenol 500 to 1000 q.6 hours, do not exceed acetaminophen 4 grams in q.24 hours, give for 30 days. 14. Dulcolax suppository 10 mg rectally p.r.n. 15. MOM 30 mL twice daily p.o. 16. Mylicon or Gas-X 80 mg p.o. daily as needed. 17. Benadryl 25 mg q.12 hours as needed. She was given Home Health PT/OT and Speech plus 8 three times per week for 4 weeks. I will see her thereafter. Follow up with her family physician as soon as possible. Follow up with Dr. Suarez as he sees fit. PATIENT'S NAME: TERRI CHEEMA [facility] AGE: 86 Y [address] ROOM: [address] [place] [id number] LOCATION: [facility] ADMIT DATE: 01/29/2017 Discharge Summary DISCHARGE DATE: 02/28/2017 FAMILY PHYSICIAN: Everton Gould MD ATTENDING PHYSICIAN: Kain Rowe Should not drive and/or operate any mechanical device until she is reevaluated. Again, Coumadin or Lovenox as per couture dressmaker and dosing and followup on the PT and INR. She should follow with her family physician for all medications, renewals, and change of medication. All the above was explained to her in detail. She verbalized understanding and agreement. KAIN ROWE MD WMS/modl /[id number] d: 02/28/17 2353 t: 03/04/17 1139, DISCHARGE SUMMARY
[~2017-01-29 10:26] MED LIST changes: +ALLERGY RELIEF25 MG PO; +COUMADIN **IA2.5 MG PO; +LEVOTHROID (SY50 MCG PO; +PRAVACHOL40 MG PO; +ZANTAC150 MG PO
--- NOTE | 2017-01-29 12:43 | NUR ---
Patient arrived to [facility] at 1010. She was previously admitted to [facility] following and ICH. She has an IC in her right FA- SL. Alert and oriented x3. Denies current pain, however states she has had intermittent WATTS since admission. States she has N/T to her right arm and leg. Decreased sensation is also noted on the right side of body compared to the left. NIHSS- 7 r/t facial droop, drifting of right arm and leg. Ataxia x2. Decreased sensation on the right side of body. Slight slurring with speech- worsens when patient is tired. Lungs are clear and slightly dimnished in the bases- RA. Bowel sounds are active. Voids per bathroom. Slight reddness to buttocks. 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 1+ pulses throughout. Tearful on admission- was admitted to another hospital the night before and the patient is worried. Pleasant and cooperative with cares.
[2017-01-29 14:34] LABS: BILIRUBIN URINE NEGATIVE (NEGATIVE); BLOOD URINE NEGATIVE /UL (NEGATIVE); COLOR URINE YELLOW (YELLOW); GLUCOSE URINE NEGATIVE (NEGATIVE); KETONE URINE NEGATIVE (NEGATIVE); LEUKOCYTES URINE NEGATIVE /UL (NEGATIVE); NITRITE URINE NEGATIVE (NEGATIVE); PROTEIN URINE NEGATIVE (NEGATIVE); SPEC GRAVITY URINE 1.015 (1.003-1.035); TURBIDITY URINE CLEAR (CLEAR); UROBILINOGEN URINE NORMAL (NORMAL)
--- NOTE | 2017-01-29 17:05 | NUR ---
Significant Event: Patient is alert and oriented x3. Denies WATTS this shift. N/T to right side of body. NIHSS- 7. See neuro. Lungs are clear and slightly diminished in the bases. RA. Bowel sounds are active. Voids per bathroom. Ambulates with 1-2 assist, gb and walker. Right side- N/T, Drift to right leg and arm. No edema present. Pulses palpable. Slurring speech. Sling to right arm for comfort. Swallows pills whole. PIV to right FA- SL. Tearful today. Her was admitted to another hospital for illness making her upset. Family at bedside. Pleasant and cooperative with cares. Follow up:
[2017-01-30 04:24] LABS: BASOPHIL # 0.1 K/uL (0.0-0.2); BASOPHIL % 0.8 %; EOSINOPHIL # 0.2 K/uL (0.0-0.5); EOSINOPHIL % 3.4 %; HEMATOCRIT 38.5 % (30.0-46.0); HEMOGLOBIN 12.9 g/dL (10.0-15.0); IMMATURE GRANULOCYTE % 0.7 %; LYMPHOCYTE # 1.6 K/uL (0.8-4.0); LYMPHOCYTE % 26.3 %; MCH 33.7 pg (27.0-34.0); MCHC 33.5 gm/dL (32.0-36.5); MCV 100.5 fl (83.0-98.0); MONOCYTE # 0.6 K/uL (0.0-1.0); MONOCYTE % 10.9 %; MPV 8.9 fl (9.4-12.4); NEUTROPHIL # (ANC) 3.4 K/uL (1.8-7.8); NEUTROPHIL % 57.9 %; NRBC % 0 /100WBC (0-0.00); PLATELET COUNT 258 K/uL (150-450); RBC 3.83 M/uL (3.00-5.00); RDW-CV 14.8 % (11.9-14.6); WBC 5.9 K/uL (4.0-11.0)
[2017-01-30 04:42] LABS: ALBUMIN 3.4 gm/dL (3.5-5.0); ANION GAP 9.5 (10.0-19.0); CALCIUM 8.6 mg/dL (8.5-10.5); POTASSIUM 3.5 mMol/L (3.7-5.1); TOTAL BILIRUBIN 0.5 mg/dL (0.0-1.5); TOTAL PROTEIN 6.7 g/dL (6.0-8.4)
--- NOTE | 2017-01-30 05:06 | NUR ---
Significant Event: denies pain. up to bathroom with wheelchair and 1 assist. transfers fair. has r) sided weakness. glove to r) hand. weak r) hand grasp. slight droop to r) mouth. speech slurred and has difficulty with word finding at times. anxious and sad at times about diagnosis. SL to r) forearm. lung sounds clear/dim in bases. had moderate bm. continent of bowel and bladder. a/o x3. Follow up:
--- NOTE | 2017-01-30 17:48 | NUR ---
Significant Event:PATIENT ALERT THIS SHIFT. IS FORGETFUL AT TIMES. VSS. BP LOW, ORDER RECEIVED FOR PARAMETERS FOR BP MEDS. BP MEDS HELD THIS AM. SALINE LOCK IN RIGHT FOREARM. HAS TOLERATED THERAPY WITHOUT DIFFICULTY. RESTS IN CHAIR OR BED BETWEEN THERAPIES. STARTED ON POTASSIUM TODAY FOR A LOW POTASSIUM. GIVE MEDS WHOLE 1 AT A TIME IN APPLESAUCE. MONITOR VOICE AND HAVE HER CLEAR HER THROAT IF SHE SOUNDS OFF AFTER MEDS. HAS A FREQUENT COUGH. NO OTHER COMPLAINTS. Follow up:
[2017-01-31 00:30] LABS: BILIRUBIN URINE NEGATIVE (NEGATIVE); BLOOD URINE NEGATIVE /UL (NEGATIVE); COLOR URINE YELLOW (YELLOW); GLUCOSE URINE NEGATIVE (NEGATIVE); KETONE URINE NEGATIVE (NEGATIVE); LEUKOCYTES URINE 100 /UL (NEGATIVE); NITRITE URINE NEGATIVE (NEGATIVE); PROTEIN URINE NEGATIVE (NEGATIVE); SPEC GRAVITY URINE 1.015 (1.003-1.035); TURBIDITY URINE 1+ (CLEAR); UROBILINOGEN URINE NORMAL (NORMAL)
[2017-01-31 00:43] LABS: AMORPHOUS URINE 1+ (NEGATIVE); BACTERIA URINE RARE (NEGATIVE); RBC URINE NEGATIVE #/HPF (NEGATIVE)
--- NOTE | 2017-01-31 04:03 | NUR ---
Significant Event:Up with 1-2 assist and use of hemiwalker, does lean to the right and drags right foot with ambulation. Continent with voids, small bm last evening. UA shows 100 leukocytes and 5-10 wbc's. Numbness to right arm/hand and leg. Saline lock removed from rt forearm last evening due to redness/firm area to site. Did warm pack bilat forearms (left arm has red, tender, firm area as well) from former IV sites. Meds whole in applesauce. [place] thick/mech soft diet with worley water protocol as well. Takes regular water without difficulty. Head of bed up 30 degrees for 30-45 min after meals/meds. Edema glove to right hand. 159/80. Rt mouth drooping. No pain. Follow up:Warm moist packs to bilat forearms at prior IV sites. Assist with oral intake.
[2017-01-31 05:23] LABS: ALBUMIN 3.2 gm/dL (3.5-5.0); ANION GAP 10.1 (10.0-19.0); CALCIUM 8.6 mg/dL (8.5-10.5); POTASSIUM 4.1 mMol/L (3.7-5.1); TOTAL BILIRUBIN 0.4 mg/dL (0.0-1.5); TOTAL PROTEIN 6.4 g/dL (6.0-8.4)
--- NOTE | 2017-01-31 14:59 | NUR ---
[facility] Case Management Prefunctioning and Psycho-Social Initial Assessment for 01/29/17 and Discharge Note for 01/29/2017 D: Initial Media Production Support ManagerNews Videographer and Discharge Note. I: Input from: patient, family, Gabi Abraham LCSW R: Reason for admission: left intracranial hemorrhage/thalamic bleed, right hemiparesis. Admission Date to [facility]: 01/29/2017 Admission Date to Hospital: 01/21/2017 Prior level of functioning: patient was independent with adl's and household prior to stroke. Prior living situation: one story house with basement Financial resources/expectations: patient has Medicare and [employer]. Resources used: none. Resources available: HHC, outaptietn therapy, SNF, [facility], [facility]. Family support available: kids, Understands nature of health condition: yes Recognizes impact of health condition on lifestyle: yes Vocational/Educational: retired Behavior/Emotional needs: cues for safety. Monitor for signs and symptoms of depression and anxiety. Legal concerns: none. Discharge goal: home in approx. 4 weeks. Assessment: Shayy is a 86 year old woman from [place], [place] admitted after a stroke. Has good family support. Plan is for aptient to remain on [facility] for approx. 4 weeks. Will follow. Orientation to the program and CM services completed with Shayy. Initial plan of care and estimated length of stay discussed, disclosure statement reviewed including patient assessment rights. P: Target date and individual goals established. Please see POC for details. For additional information please see Nursing Data Base, PT, OT, TR, ST, Initial assessments to [facility].
--- NOTE | 2017-01-31 20:58 | NUR ---
Significant Event:PATIENT ALERT AND ORIENTED THIS SHIFT. VSS. TRANSFERS WTIH 1 ASSIST, GAIT BELT AND HEMIWALKER. DENIED PAIN ALL SHIFT. TOLERATING THERAPIES FAIRLY WELL. COMPLAINED OF FEELING TIRED AND FATIGUED THIS AM. THINKS SHE SHOULD BE DOING BETTER. ENCOURAGED HER TO SEE THE PROGRESS AND TAKE IT ONE DAY AT A TIME. NO OTHER COMPLAINTS. TAKES MEDS WHOLE WITH APPLESAUCE BUT SPEECH INSTRUCTED TO TRY PUDDING INSTEAD. Follow up:
--- NOTE | 2017-02-01 06:47 | NUR ---
ignificant Event: A/O. 1 assist transfer w/ paco walker and gaitbelt. some word finding issues. Aphaisic. Castillo water protocol. Mechanical soft and nectar thick liquids. VSS on room air. Edema glove to right hand. Right side weakness. Left arm tender from previous IV site. Right foot drags when ambulating, occassionally. Meds whole in pudding. Monitor for voice change during meds and encourage to swallow, allow extra time. Exercises posted in room to work on through the weekend. Denies physical pain but she has emotional pain from not being able to do for herself and her family. Many tears during the night. Bed alarm on. Call light in reach. Follow up:Exercises. 1:1 supervision with meals. [place] thick liquids. Castillo WAter Protocol.
--- NOTE | 2017-02-01 15:17 | NUR ---
Significant Event:Alert and orientated, daughter here majority of the shift, good support. Family visitors came for several hours noon/after. Continues to deny pain. Still impatient with her progress, encourage on what she can do. Pt has to up for meals, watch in DR. Hanks, some word finding difficulty. Right hand edema glove. Takes meds 1 @ a time, best with pudding, break Calcium med in 1/2. Encourage exercises left in room per therapy for pt to work on. Monitor old IV site has sml nodule. Dom protocol. Pt has been pleasant and cooperative with plan of care. Follow up:.monitor voice change, encouarage exercises left in rm per therapy, meds whole with vanilla pudding.
--- NOTE | 2017-02-02 04:20 | NUR ---
Significant Event: A&Ox3, VSS on room air. Repositions self in bed. Right sided weakness. Transfers with 1PA hemiwalker/GB to bathroom. Unsteady gait, hands on at night. [place] thick liquids. Meds one at a time with pudding. Rested well this shift. Follow up: continue with plan of care.
--- NOTE | 2017-02-02 15:13 | NUR ---
Significant Event:No changes in assessment. Remains alert and orientated. Family here again, pt reports she had great visit, and made her tired, went to bed to rest this afternoon. Denies pain. Watch in DR for meals, up for meals. Aphasia, some word find difficulty.Right hand edema glove. Takes meds 1 @ a time with pudding or applesauce. Break large pills in 1/2. Dom protcol. Pt has been pleasant and coopertive with plan of care. Up with 1 assist, paco walker/GB. Necter thick liquids. Follow up:monitor voice change, encourage exercises left in rm per therapy, meds whole with vanilla pudding or applesauce.
--- NOTE | 2017-02-03 04:01 | NUR ---
Pt is alert and oriented to person and place this shift. Pt was unsure of the day but knew it was January of 2017. Pt had trouble recalling who the president was and then her told her. Pt has denied pain this shift and refused pain medication offered. Pt was 1 assist ambulating to the batheroom with paco walker. Pt was unsteady on her feet and her right leg would try to give out while ambulating but she was able to recover. has edema glove to right hand. Pt is Hard of hearing but able to make needs known.
--- NOTE | 2017-02-03 08:58 | NUR ---
A-SCREENED D/T LOS; NEW ADMIT TO [facility] S/P CVA W/SOME APHASIE. WEARS AN EDEMA GLOVE ON R)HAND HT: 60 IN. CBW (STANDING SCALE): 52.9; ADMIT WT (BED SCALE): 52.2 KG BMI: 22.4 LABS REVIEWED: PREALB 24.0 (WNL) MEDS: KCL, ZESTRIL, PEPCID, COLACE, PRAVACHOL, OSCAL+D, PRN BOWEL MEDS DIET RX: MECHANICAL SOFT/NECTAR THICK WITH HEALTH SHAKES BID. PO INTAKE SINCE ADMIT TO REHAB HAS BEEN 50-75%. EST NUTR. NEEDS: 8964-1180 KCALS (25-30 KCALS/KG) 53-64 GM PROTEIN (1.0-1.2 GM/KG) 1 ML FLUID/KCAL D-NOT AT NUTRITION RISK; NO NUTRITION DX IDENTIFIED I-CONTINUE W/HEALTH SHAKES BID TO MAINTAIN NUTR. STATUS M/E-GOAL: PO INTAKE >/=50% FOR DURATION OF ADMIT 1)F/U PO INTAKE, WT, LABS, AND POC IN 7-9 DAYS 2)ASSIST NEEDED
--- NOTE | 2017-02-03 16:01 | NUR ---
Significant Event:PATIENT ALERT BUT IS FORGETFUL. VSS. TRANSFERS WITH 1 ASSIST, GAIT BELT AND WALKER. RIGHT FOOT DRAGS SOME WHEN WALKING BUT OVERALL MORE STEADY THAN ON FRIDAY. DENIES PAIN. WANTS A SHOWER TONIGHT. ASKED FOR ONE THIS AM AT 0820 BUT EXPLAINED THAT IT WOULD HAVE TO BE LATER IN THE DAY DUE TO THERAPIES. NO OTHER COMPLAINTS. Follow up:
--- NOTE | 2017-02-04 05:55 | NUR ---
Alert and oriented. Forgetful at times. Up with one assist and walker. Denies need for pain meds. Refused HS suppository as she states it would keep her up. Would like to take it earlier in the day today after therapies if needed. and daughters here to visit. Slept well.
--- NOTE | 2017-02-04 08:32 | NUR ---
D: Therapeutic Recreation Initial Assessment on the 02/04/17. I: Patient seen for 2 units at 830 to begin initial evaluation. Pt has dx of intracranial hemorrhage. R: Patient's current living situation and status: condo Home entrance steps: 0 Living with: Spouses name: José # of children: 4 (1 close by) Driving: yes, (spouse can't drive) Ambulating: I Equipment: N/A Hand Dominance: Right Machine Joint Cutter strength: R) side weakness Eye sight: glasses Reading ability: fair > good Hearing: [place], has aides Speech: slight slur Cognition: impaired Comprehension: fair Following directions: yes Initiating: yes Eye contact: good Affect: bright COMMUNITY INVOLVEMENT: grocery shopping, care for daughter, restoration, out to eat, restoration [place], visit friends, coffee monthly with group LEISURE INTERESTS: nice!, garden, yard work, some TV, read (newspaper (2)), sit outdoors, past needle work Patient is referred by medical staff for treatment and evaluation in the following areas: Community Skills, Functional Leisure Skills, Participation, Leisure Education/Behaviors, Family Education, Emotional. Information obtained: Interview, Chart Review, Observation, other. BARRIERS TO LEISURE: Financial, Physical, Lifestyle (reports problems with depression) Transportation Patient determined to be: APPROPRIATE FOR THERAPEUTIC RECREATION ASSESSMENT. TREATMENT WILL INCLUDE: Community living skills training Functional leisure development Physical skills development Cognitive skills development Social skills development Leisure education Emotional/behavioral adaptation Family education Community resources/packet TARGET EQUIPMENT/INFORMATION: Parking Permit HAS IN PLACE Community Resources Energy conservation in community setting Van/Service/Taxi Scrip Adapted Leisure Equipment Stress management/Relaxation techniques Functional car transfers Leisure Education Behaviors: Attitude, Awareness, Participation. Patient functional skills level and potential: Guarded, pt demonstrates poor mobility with concerns for coping per pt's report. Patient oriented ot TR services on Rehab unit. Pt/family provided input into goals setting and plan of care. Pt's goal is to return home. P: Target date set with personal goals established. Will continue with POC focusing on pt/family training and education. For additional information please see Nursing Data Base, PT, OT, CM, ST, initial assessments to [facility] and Interdisciplinary Assessments.
--- NOTE | 2017-02-04 16:58 | NUR ---
Significant Event:PATIENT ALERT BUT IS FORGETFUL. VSS. TRANSFERS WITH 1 ASSIST, GAIT BELT AND WALKER. SPEECH CONTINUING TO WORK WITH PATIENT AND EATING. HAS DENIED PAIN ALL SHIFT. TOLERATING THERAPIES WITHOUT DIFFICULTY. DID GET VERY UNSTEADY ONCE GOING TO THE BATHROOM AND NEARLY FELL. NEEDS TO BE REMINDED TO INDUSTRIAL AUTOMATION SPECIALIST HER RIGHT FOOT SO IT DOESN'T DRAG. Follow up:
--- NOTE | 2017-02-05 02:35 | NUR ---
Alert and oriented. Calls for assistance as needed. Up with one assist, gaitbelt and walker. Rt sided weakness with rt foot drop. Hand grasp in rt is improing. Speech working with pt. Takes meds with [place] pudding. Denies need for pain meds. and daughters here daily.
--- NOTE | 2017-02-05 14:49 | NUR ---
Significant Event:Pt alert, orientated to self, and place, forgetful @ times, needs reinforcement. Transfers with 1 assist, walker/gait belt. Apashic, has problems with word search @ times. Right foot drags when ambulates, remind to picking tech, has right side weakness. Wears isotoner glove on right hand when up. Takes meds whole in pudding/applesauce. Family good support. Pt has been pleasant and cooperative with plan of care. Follow up:pain control. monitor meals, meds 1 @ a time whole with pudding or applesauce.
--- NOTE | 2017-02-06 03:53 | NUR ---
Significant Event: Patient is alert and oriented, VSS. Some aphasia. Up one assist with GB/ walker. Right side weakness, right foot drags some with ambulation. Edema glove to her right hand. Denies pain or discomfort but took some Tylenol last night to help her sleep. Diet has been changed, is on a regular diet with thin liquids. Intermittent supervision and cues during meals. Meds in pudding or applesauce. Follow up:
[2017-02-06 15:00] LABS: ALBUMIN 3.6 gm/dL (3.5-5.0); ANION GAP 11.7 (10.0-19.0); CALCIUM 8.6 mg/dL (8.5-10.5); CREATININE 1.2 mg/dL (0.5-1.1); POTASSIUM 4.7 mMol/L (3.7-5.1)
[2017-02-06 15:11] LABS: TOTAL BILIRUBIN 0.3 mg/dL (0.0-1.5)
--- NOTE | 2017-02-06 16:32 | NUR ---
Significant Event: Pt up in room this am with walker, 1 assist, unsteady, at times drags rt foot, haylee. fair. This afternoon at 1400, P.T. returned pt to room, pt lethargic and very weak. Pt stated she felt "like she had a tranquilizer". VSS at this time, pt laid down. pt stated "she just wanted to sleep awhile". TANNER Winn notified she ordered to stop lexapro that was initial dosed today. continue to monitor, call with update at 1630. Also notified Dr Alexander also, head CT ordered, VS Q4H, CMS. Took pt for CT at 1635. VSS remain stable, pt also nauseated with small emesis, still very drowsy. Follow up: activity, safety
--- NOTE | 2017-02-07 03:54 | NUR ---
Significant Event: Patient is alert and mostly oriented may be forgetful. Has some aphasia. VSS. Up one assist with GB/Walker. Right side weakness. Drags her right foot with ambulation. Wears an edema glove to her right hand. Denies pain or discomfort but did call at 2352 for some Tylenol to help her sleep. Is newly allowed a regular diet and thin liquids, needs intermittent supervision and swallow cues. Has been taking meds whole with water. Had c/o of some depression and was started on Lexapro yesterday. During therapy she became very lethargic and weak. MD called and CT was done which was normal. Has had no other episodes t/o the night. Follow up: Plans for car transfers today at 0945. Outing on Friday.
--- NOTE | 2017-02-07 13:52 | NUR ---
D: TR progress note for 02/07/17. I: Pt seen for 2 units at [facility] for community integration skills building, functional transfers, family training, and safety awareness. R: Pt seen for functional skills building working on family training, mobility, safety, functional transfers and community skills in anticipation for discharge back into community with family. Pt's daughters/spouse present for session, transferred into their vehicle with Therapies (TR/OT) performing first transfers for demonstration and family providing all hands on assistance and Therapies SBA for safety and cues as needed. Pt transferred sit > stand from CGA (x2), ambulated with walker to/from vehicle CGA (2x) and transferred in/out of vehicle CGA (x2) with verbal cue for safety with hand placement. Pt was SBA for BLE management and positioning of self, tolerated with no C/o pain, discomfort or nausea. Family training done on use of gait belt and safety in community setting. P: Will continue to see to address goals and plan of care.
--- NOTE | 2017-02-07 13:59 | NUR ---
Significant Event: Alert/oriented x 3. Vitals stable. Speech slurred, aphasic at times. 1 assist with gait belt & walker, drags right foot slightly. No c/o pain. Follow up:
--- NOTE | 2017-02-08 05:15 | NUR ---
Patient alert and oriented. Transfers 1A Gb/Walker. R) foot drags slightly. Speech can be slurred and slow at times. Is aphasic at times but is able to get out what she wants to say for the most part. Had lots of visitors this evening. Denies pain. VSS. Cooperative with cares.
--- NOTE | 2017-02-08 15:36 | NUR ---
Significant Event: Pt up in room with walker, 1 assist, sl. unsteady, haylee. well. At times drags rt foot. Pt went on outing with family and tolerated well. Denied all pain. Took meds well with water a couple at a time. 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 Aphasia present. Pt very pleasant and cooperative with cares Follow up: activity, safety, pain management
--- NOTE | 2017-02-09 05:15 | NUR ---
Significant Event:A/O. 1 assist transfer with GB and walker, right foot drags; requires cuing. No BM, M.O.M. given, no results yet. Tylenol at HS per request. Edema glove to R)hand; removed at HS. Teds off at HS, calf pneumatics on. Hypertensive. Aphaisic. Some slurred speech. Extremely tired tonight from outing with family. Call light in reach. Bed alarm on. Cooperative with cares. Follow up:Practice writing.
--- NOTE | 2017-02-09 16:54 | NUR ---
Significant Event: Pt up in room and adrian with walker, 1 assist, haylee. fair, does start to fatigue and drags rt foot at times. MOM was given at 0230 scant Bm results t/o day. Dulcolax suppository this afternoon. More results following suppository. Aphasia present. Edema glove on rt hand. Pt pleasant and cooperative with cares. Follow up: activity, safety, BM,
--- NOTE | 2017-02-10 04:04 | NUR ---
Significant Event:A/O. 1 assist transfer with walker and gaitbelt. Some cuing required, right leg tends to drag. Edema glove to right hand. Right side weakness and edema. Lg Bm this shift. Miki socks off at HS and calf pumps on. Apahsic. Right side weakness. Family visited.Tylenol at HS. Call light in reach. BEd alarm on. Follow up:Strengthening. Transfers.
[2017-02-10 06:02] LABS: BASOPHIL % 0.4 %; EOSINOPHIL # 0.1 K/uL (0.0-0.5); EOSINOPHIL % 1.9 %; HEMOGLOBIN 12.6 g/dL (10.0-15.0); IMMATURE GRANULOCYTE % 0.5 %; LYMPHOCYTE # 1.8 K/uL (0.8-4.0); LYMPHOCYTE % 25.1 %; MCH 33.8 pg (27.0-34.0); MCHC 33.2 gm/dL (32.0-36.5); MCV 101.9 fl (83.0-98.0); MONOCYTE # 0.6 K/uL (0.0-1.0); MONOCYTE % 8.4 %; MPV 9.2 fl (9.4-12.4); NEUTROPHIL # (ANC) 4.7 K/uL (1.8-7.8); NEUTROPHIL % 63.7 %; NRBC % 0 /100WBC (0-0.00); PLATELET COUNT 263 K/uL (150-450); RBC 3.73 M/uL (3.00-5.00); RDW-CV 14.9 % (11.9-14.6); WBC 7.3 K/uL (4.0-11.0)
[2017-02-10 06:22] LABS: ALBUMIN 3.2 gm/dL (3.5-5.0); ANION GAP 10.2 (10.0-19.0); CALCIUM 8.4 mg/dL (8.5-10.5); CREATININE 0.9 mg/dL (0.5-1.1); POTASSIUM 4.2 mMol/L (3.7-5.1); TOTAL BILIRUBIN 0.3 mg/dL (0.0-1.5); TOTAL PROTEIN 6.2 g/dL (6.0-8.4)
--- NOTE | 2017-02-10 10:56 | NUR ---
D: Patch Setter Team Conference Follow up for 02/05/2017 I: Input from patient/family R: Met with: patient, family, Gabi Abraham RIGGING SUPERVISOR Discussed rehab plan, patient progress, discharge plan and estimated length of stay of d/c planned in approx. 3 weeks. Patient/Family Preference: patient is in agreement. Anticipated discharge disposition: home with support. Education completed: Education was completed with patient regarding length of stay, progress in therapy and d/c plan. Assessment/Recommendation: Team recommends d/c in approx. 3 weeks. P: Case Coordination: Shayy is an 86 year old woman from [place], [place] admitted after a stroke. She has good family support. Plan is for patient to d/c in approx. 3 weeks. Will follow and assist as needed.
--- NOTE | 2017-02-10 13:43 | NUR ---
INTAKE 75-100%. WT 118# IS UP 4# SINCE ADMIT TO GIRP. PRE-ALB REMAINS WNL. NOT AT RISK. WILL ASSIST NEEDED.
--- NOTE | 2017-02-10 18:03 | NUR ---
Significant Event: Pt denied need for pain pill. Pt would like tylenol at hs to help her sleep. Pt up with 1 assist and walker. Pt aphasic, struggles with occassional words, but is able to make needs known. Follow up:
--- NOTE | 2017-02-10 23:48 | NUR ---
Significant Event: Patient alert and oriented x3. Up with one assist and walker. Right sided weakness. Has some trouble with word finding every once in a while. Reports tingling to left lower extremity that is off/on. CSM within normal limits. Vitals stable on room air. Patient stated she felt very tired so received tylenol at 1932 and has been sleeping since. Pleasant and cooperative with cares Follow up: left arm limb alert, no straws
--- NOTE | 2017-02-11 04:00 | NUR ---
*RESUMED CARE FROM [id number]* Patient voices issues with sleeping tonight. Denies needs, refused aromatherapy and PRN meds. Up to bathroom X1 with 1PA.
--- NOTE | 2017-02-11 13:56 | NUR ---
Significant Event: Alert and oriented x 3. Up with 1A walker and gait belt. Denies pain. Aphasic. R) sided weakness. Tingling to LLE. Cooperative with cares. VSS. Uses call light appropriately. Emotional this afternoon about how long she will be here. Follow up:
--- NOTE | 2017-02-11 16:45 | NUR ---
D: TR progress note for 02/11/17. I: Pt seen for 2 units at 1230 for mobility, motor skills, sequencing, coordination and coping strategies. R: Pt seen for functional skills building working on sequencing, motor skills, and coordination of RUE using playing cards to improve motor skills with and promote independence. Pt ambulated to/from session 25 feet with walker and cues for RLE management CGA, transferred in/out of low community style chair with no arm rest CGA with cues for hand placement. Pt completed card game "jacks R wild" with SBA > occasional cues for game's strategy demonstrating fair > poor motor skills utilizing BUE, good with LUE but poor with RUE and fair math skills but good sequencing. Education continued on utilization of leisure to promote recovery and for coping. P: Will continue to see to address goals and plan of care.
--- NOTE | 2017-02-12 02:40 | NUR ---
Significant Event: denies pain. has r) sided weakness. reports tingling to bilat. lower extremities. up to bathroom with wheelchair and 1 assist, unsteady gait. voided but no bm. MOM given at hs. speech aphasic. Follow up:
--- NOTE | 2017-02-12 04:55 | NUR ---
D: patient request to have BP taken due to weakness and dizziness. I:vss, 131/73-68-95%. up to bathroom and voided. gait unchanged neuro assessment unchanged from previous. given sips of water. R: returned to bed, hob elevated slightly. P: continue to monitor patient
--- NOTE | 2017-02-12 11:41 | NUR ---
D: TR progress note for 02/12/17. I: Pt seen for 2 units at 1100 in group session for education on pain/stress management, coping strategies, and leisure education. R: Pt seen for functional skills building working on stress management, relaxation and education on signs and symptoms of depression to increase awareness of coping strategies. Pt actively participated in session, completed functional social communication skills independently which involved personal introduction of self and past relaxation activity. Education completed by verbal discussion on the signs and symptoms that physical stress/pain can cause the body and how it affects healing along with identification of coping strategies, relaxation techniques, and options available. Pt had to leave group early due to Physician's visit. P: Will continue to see to address goals and plan of care.
--- NOTE | 2017-02-12 17:04 | NUR ---
Significant Event:PATIENT ALERT AND ORIENTED THIS SHIFT. IS FORGETFUL AT TIMES. VSS. TRANSFERS WITH 1 ASSIST, GAIT BELT AND WALKER. IS MORE STEADY AND ALBE TO DO MORE FOR HERSELF. TOLERATING THERAPY WELL. DENIES PAIN. DID HAVE SOME COMPLAINTS OF UPSET STOMACH THIS AFTERNOON. THINKS IT WAS FROM THE LAXATIVE. DID HAVE A BM TODAY. SIPPED ON KIMBERLEY MIST AND NO FURTHER COMPLAINTS. FAMILIY VISITING THIS AFTERNOON. NO OTHER COMPLAINTS. Follow up:
--- NOTE | 2017-02-13 04:13 | NUR ---
Significant Event: A&Ox3. HTN upon first assessment () after transfer to bed, rechecked and VSS on room air. Patient complaining of belly ache/bloated feeling. BS active, BM earlier in day. ABD slightly firm and distended. PRN GasX ordered and given with relief noted. Remeron started this HS. Patient stated she felt "weak", "heavy", and "dizzy" with transfers. More hands on with transfers tonight. 1PA, GB/Walker. Right sided weakness seemed to increase more tonight but with cues to focus on right side, gait improved. Follow up:
--- NOTE | 2017-02-13 14:38 | NUR ---
Significant Event:A/O X 3. R) sided weakness. Crosses right leg over left and needes multiple cues to move forward. Weak right hand grasp. NO pain meds requsted. Takes meds one at a time with double swallow. 1 assist to transfer with gait belt and few steps.
--- NOTE | 2017-02-14 04:18 | NUR ---
Significant Event: A&Ox3, VSS on room air. HS tylenol given and patient rested well. Transfers with 1PA walker/GB to bathroom. Right sided weakness, cues needed at times to bean picker foot so it doesn't drag. Pleasant and cooperative with cares. Follow up:
--- NOTE | 2017-02-14 12:18 | NUR ---
D: TR progress note for 02/14/17. I: Pt seen for 2 units at 1104 for community integration skills building, functional transfers, and safety awareness. R: Pt seen for functional skills building working on family training, mobility, safety, functional transfers and community skills in anticipation for discharge back into community with family. Pt transferred sit > stand from CGA, ambulated with walker to/from vehicle CGA with cues to slow pace and transferred in/out of vehicle CGA with verbal cue for safety with hand placement. Pt was SBA for BLE management and positioning of self with seat surface adapted using trash bag to ease task. Pt tolerated ride with no C/o pain, discomfort or nausea, independent for pathfinding to navigate to own home. P: Will continue to see to address goals and plan of care.
--- NOTE | 2017-02-14 12:30 | NUR ---
D: Dry Cleaner Helper Team Conference Follow up for 02/11/17 I: Input from patient/family R: Met with: patient, family, Gabi Abraham SURGICAL RN Discussed rehab plan, patient progress, discharge plan and estimated length of stay of d/c planned in approx. 2 weeks. Patient/Family Preference: patient and family are in agreement. Anticipated discharge disposition: home with support. Education completed: Education was completed with patient and family regarding length of stay, progress in therapy and discharge plan. Assessment/Recommendation: [place] recommends that patient remain on GIRP for approx. 2 more weeks. P: Case Coordination: Shayy is an 86 year old woman from [place], [place] admitted after a stroke. She has good family support. Will follow and assist as needed.
--- NOTE | 2017-02-14 18:53 | NUR ---
Significant Event: Alert and oriented X 3. VSS. Room air. Denies any pain this shift. Transfers with 1 assist, gait belt and walker. Right sided weakness. Does drag foot. Pleasant and cooperative with cares. Follow up:
--- NOTE | 2017-02-15 04:31 | NUR ---
Significant Event:pt alert and oriented x4. pleasant with staff and cares. family here most of evening. pt vss. up with 1 assist gait belt walker. pt gait stead does have right foot drag at times. contient of bowel and bladder. takes medication whole 1 at a time, does have some coughing noted with swallowing. encouraged to tuck chin down. pt denies pain when asked. uses call light approp. vss during shift. rested well during night. Follow up:
--- NOTE | 2017-02-15 14:11 | NUR ---
Significant Event: Alert and oriented x 3. Up with 1A walker and gait belt. VSS. Meds whole with water. Right sided weakness. Drags right foot. Cough noted. Patient states its from allergies. Pills whole with water 1 at a time. Chin tuck when swallowing. No straws. Denies pain. Went on outing this afternoon with daughter. Continent of bowel and bladder. Uses call light appropriately. Follow up:
--- NOTE | 2017-02-16 03:04 | NUR ---
Significant Event: a/o x3. had outing yesterday and wanting to go again today. has been continent this shift. MOM given per patient request, no bm this shift. takes meds whole with water, no straws. up to bathroom with walker and 1 assist, drags r) foot. denies pain. note left on chart to see about getting her benadryl ordered per patient request. Follow up:
--- NOTE | 2017-02-16 15:51 | NUR ---
Significant Event: Alert and oriented x 3. Up with 1A walker and gait belt. Denies pain. Meds whole with water. Right sided weakness. Drags right foot when walking. Cough noted when taking pills. No straws. Outing this afternoon with her daughter. Came back very tired. Bendryl brought by the patient for her allergies. Ordered PRN. Last BM this morning. Continent of bowel and bladder. Cooperative with cares. Emotional after coming back from her outing. Follow up:
--- NOTE | 2017-02-17 02:45 | NUR ---
Significant Event: denies pain. a/o x3. takes meds whole with water. no straws. right side weaker. unsteady gait, drags right foot when walks. continent of bladder. has occasional cough. family here during wilder. had bm on says and denied need for MOM. has elieser ordered PRN for allergies, reports will want dose in am. Follow up:
[2017-02-17 05:36] LABS: BASOPHIL # 0.1 K/uL (0.0-0.2); EOSINOPHIL # 0.2 K/uL (0.0-0.5); EOSINOPHIL % 4.7 %; HEMATOCRIT 37.4 % (30.0-46.0); HEMOGLOBIN 12.2 g/dL (10.0-15.0); IMMATURE GRANULOCYTE % 0.6 %; LYMPHOCYTE # 1.8 K/uL (0.8-4.0); LYMPHOCYTE % 35.8 %; MCH 33.2 pg (27.0-34.0); MCHC 32.6 gm/dL (32.0-36.5); MCV 101.9 fl (83.0-98.0); MONOCYTE # 0.5 K/uL (0.0-1.0); NEUTROPHIL # (ANC) 2.3 K/uL (1.8-7.8); NEUTROPHIL % 46.9 %; NRBC % 0 /100WBC (0-0.00); PLATELET COUNT 291 K/uL (150-450); RBC 3.67 M/uL (3.00-5.00); RDW-CV 14.8 % (11.9-14.6); WBC 4.9 K/uL (4.0-11.0)
[2017-02-17 05:46] LABS: ALBUMIN 3.2 gm/dL (3.5-5.0); CALCIUM 8.4 mg/dL (8.5-10.5); CREATININE 1.1 mg/dL (0.5-1.1); TOTAL BILIRUBIN 0.3 mg/dL (0.0-1.5); TOTAL PROTEIN 6.3 g/dL (6.0-8.4)
--- NOTE | 2017-02-17 11:05 | NUR ---
A-NUTRITION F/U 02/11 WT: 53.8 KG; WT STABLE LABS REVIEWED: PREALB 27.0; UP FROM 26.0 DIET RX; REGULAR W/HEALTH SHAKE BID. PO INTAKE SINCE LAST F/U 75-100%. REFUSING THE HEALTH SHAKES EST NUTR NEEDS: [id number] KCALS AND 53-64 GM PROTEIN D-NOT AT NUTRITION RISK; NO NUTRITION DX IDENTIFIED I-D/C HEALTHY SHAKES BID D/T PT REFUSING M/E-ASSIST NEEDED
--- NOTE | 2017-02-17 19:37 | NUR ---
Significant Event:PATIENT ALERT AND ORIENTED THIS SHIFT. VSS. TRANSFERS WITH 1 ASSIST, GAIT BELT AND WALKER. HAS DENIED PAIN ALL SHIFT. RESTS IN WHEELCHAIR BETWEEN THERAPIES AND READS OR WORKS ON PUZZLES. HAND GRASPS MORE EQUAL BUT LEFT STILL SLIGHTLY WEAKER. NO OTHER COMPLAINTS. Follow up:
--- NOTE | 2017-02-18 02:50 | NUR ---
Significant Event:A/o. 1 assist w/ Gaitbelt and walker. Aphaisic. Slurred speech at times, especially when tired. R) side weaker than left but becoming more even with focus. Right leg still drags occassionally. Denies pain.Miki socks off. Calf pumps on. Call light in reach. Bed alarm on. Follow up: Would like Benadryl in the morning.
--- NOTE | 2017-02-18 15:28 | NUR ---
Significant Event: Patient alert and oriented. Speech is slow. Some right sided weakness. Follow up:
--- NOTE | 2017-02-18 16:23 | NUR ---
D: TR progress note for 02/18/17. I: Pt seen for 2 units at 1100 for cognitive task, fine motor skills building with RUE, coping strategies and mobility. R: Pt seen for functional skills building working on RUE motor skills, cognition task, functional mobility and coping skills to increase independence in all areas. Pt transferred sit > stand from recliner SBA, ambulated to/from session with walker 30 feet SBA > CGA and transferred in/out of community chair SBA with good recall on hand placement. Pt completed card game "ReserveMyHome" with min > occasional cues for game's strategy along with visual cue aide to assist with initial rules. Pt demonstrated fair motor skills utilizing BUE with good LUE and fair RUE with noted improvement with control and coordination. Pt was independent with sequencing and attention to task. Education continued on utilization of leisure to promote recovery with motor skills and coping. P: Will continue to see to address goals and plan of care.
--- NOTE | 2017-02-19 01:58 | NUR ---
Significant Event:A/O. 1 assist transfer with gaitbelt and walker. Ambulated in the adrian this shift with daughter. Meds whole with water. Some right sided weakness. Aphaisic. Scheduled Tylenol at HS. Bed alarm on. Call light in reach. Follow up:Therapy. Benadryl in the morning.
--- NOTE | 2017-02-19 14:24 | NUR ---
Significant Event: PATIENT ALERT AND ORIENTED X3. UP 1 ASSIST, WALKER, GAIT BELT. CALLS APPROPRIATELY. CONTINENT OF BOWEL AND BLADDER. TOOK PRN BENADRYL THIS AM FOR ALLERGIES. RIGHT SIDE SLIGHTLY WEAKER THAN LEFT. MEDS WHOLE WITH WATER. FEEDS SELF WELL. SHOWERED WITH OT THIS MORNING, TOLERATED THERAPY WELL. Follow up:
--- NOTE | 2017-02-20 02:14 | NUR ---
Significant Event: a/o X3. takes meds whole with water. denies pain. transfers with walker and 1 assist. unsteady gait. rt side slightly weaker than left. had bm tonight. aphasic. Follow up:
--- NOTE | 2017-02-20 16:20 | NUR ---
Significant Event:PATIENT ALERT AND ORIENTED THIS SHIFT. VSS. TRANSFERS WITH 1 ASSIST, GAIT BELT AND WALKER. IS FAIRLY STEADY ON HER FEET. DOES GET EMOTIONAL AT TIMES REGARDING HUSBANDS ILLNESS AND IS ANXIOUS TO GET HOME SO SHE CAN BE WITH HIM. WANTS TO GO TO HIS DR APPT NEXT WEEK WITH HER DAUGHTER. NO OTHER COMPLAINTS. HAS DENIED PAIN. Follow up:
--- NOTE | 2017-02-21 05:19 | NUR ---
Significant Event: PATIENT IS ALERT AND ORIENTED. AMBULATES WITH STANDBY ASSIST GB WALKER. RT SIDE WEAKNESS WITH RT FOOT DRAG SLIGHTLY. NO COMPLAINTS OF PAIN OR DISCOMFORT. VSS WNL AND DAUGHTER VISITED WANTS TO GO TO HUSBANDS APPT NEXT WEEK WITH DAUGHTER APPT DATE AND TIME IS ON THE CLIP BOARD. TAKES MEDS WHOLE WITH WATER. Follow up:
--- NOTE | 2017-02-21 12:48 | NUR ---
Significant Event: Patient alert and oriented. Right sided weakness. Speech is slow. 1 assist. Follow up:
--- NOTE | 2017-02-21 13:39 | NUR ---
D: TR progress note for 02/21/17. I: Pt seen for 2 units at 1302 for community integration skills building, functional transfers, and safety awareness. R: Pt seen for functional skills building working on mobility, safety, functional transfers and community skills in anticipation for discharge back into community with family. Pt transferred sit > stand from WC SBA, ambulated 5 feet with walker to/from vehicle SBA and transferred in/out of vehicle SBA. Pt was SBA for BLE management and positioning of self with seat surface adapted using trash bag to ease task. Pt tolerated ride with no C/o pain, discomfort or nausea, independent for pathfinding to navigate to previous home on [address] [facility]. P: Will continue to see to address goals and plan of care.
--- NOTE | 2017-02-21 16:15 | NUR ---
D: Dryerman/Woman Team Conference Follow up for 02/18/17 I: Input from patient/family R: Met with: patient, family, Gabi Abraham BUSINESS SYSTEM CONSULTANT Discussed rehab plan, patient progress, discharge plan and estimated length of stay of d/c in approx. 10-14 days. Patient/Family Preference: in agreement. Anticipated discharge disposition: home with support. Education completed: education was completed regarding length of stay, progress in therapy and d/c plan. Assessment/Recommendation: Team recommends d/c in 10-14 days. P: Case Coordination: Visited with patient and family. Plan is home with home health care. Will follow and assist as needed.
--- NOTE | 2017-02-22 04:51 | NUR ---
Alert and oriented. Showered last evening. Up with walker and one assist. Rt sided weakness. Takes meds whole in water. Denies pain. Slept well.
--- NOTE | 2017-02-22 14:18 | NUR ---
Significant Event: Patient alert and oriented. Up with 1 assist. Right sided weakness. Speech is slow and slightly slurred at times. Went on outing with family this afternoon. Follow up:
--- NOTE | 2017-02-23 04:13 | NUR ---
Significant Event:Family here last evening, plans for outing today. Denies pain, just states is tired from the day yest. 300 ml oral, voids x 5. last bm on . Takes meds whole. Did well walking last evening with rt leg, noticed this a.m. that pt was dragging rt foot when she was tired. Speech slightly slurred and slow. Up with one assist. Lovenox started last evening. Good strength to right hand/arm. Follow up:Permit for [facility] on front of chart--need an order yet and paper signed.
--- NOTE | 2017-02-23 12:25 | NUR ---
Significant Event: Patient alert and oriented. Up with 1 assist. Has some right sided weakness. Speech is slow and slightly slurred at times. Takes medications whole with water. No straws. Went on an outing with family this afternoon. Follow up:
--- NOTE | 2017-02-24 04:31 | NUR ---
Significant Event:Pt not to use straws. Oral intake 150 ml, Last bm on 5th. Has voided x 2. Denies pain. Some weakness to right hand, encouraged pt to use hand with writing and craft project. Family visits last evening. Fairly steady when ambulating, tends to drag right foot when tired and not concentrating on the activity at hand. Teary last evening, Is concerned with a future move into an assisted living and selling their condo.Up with walker/gait belt. Speech slow/slurred at times, was talking fast last evening and speech became a bit garbled. Family supportive--she is usually her spouses' caregiver. Follow up:Her has a dr apptment on Thurs a.m. at 0830 and pt wants to attend it.
[2017-02-24 05:46] LABS: ALBUMIN 3.3 gm/dL (3.5-5.0); ANION GAP 11.8 (10.0-19.0); CALCIUM 8.4 mg/dL (8.5-10.5); POTASSIUM 3.8 mMol/L (3.7-5.1); TOTAL BILIRUBIN 0.3 mg/dL (0.0-1.5); TOTAL PROTEIN 6.5 g/dL (6.0-8.4)
--- NOTE | 2017-02-24 13:36 | NUR ---
Significant Event: Patient alert and oriented. Some slight right sided weakness. Speech is slow and slurred at times. Up with 1 assist. Follow up:
--- NOTE | 2017-02-25 03:14 | NUR ---
Alert and oriented. Up with 1 assist gaitbelt and walker. 1:00 home visit planned for today. Also looking into possibly assisted living. Plan is to d/c on Friday, according to family, with daughter staying and see how this goes. Talkative and cheerful this shift. Will be going with on morning for his 8:30 Dr leyva and family asked if someone could bring her to the front of hospital when they arrive to pick her up.
--- NOTE | 2017-02-25 14:35 | NUR ---
D: TR progress note for 02/25/17. I: Pt seen for 5 units at 830 for community integration skills building, family training and home visit. R: Pt seen for functional skills building working on transfers, mobility, safety, community skills and family education in anticipation for discharge home. Pt taken home by Therapies (TR/OT) for training with spouse and (2) daughters present for session. Pt preformed transfers in/out of vehicle at [facility] and at home with both times SBA with cues for technique x1 and SBA for BLE management with seat surface adapted using trash bag to ease task. Pt at home completed transfers on/off of low couch, armless kitchen chair, in/out of rocking chair (x2), on/off toilet and in/out of bed all SBA with no LOB and use of walker for safety. Pt completing transfers from walk-in shower, on/off shower chair and transferred in/out of tub from seated position x2 all CGA with use of grab bars. When ambulating used walker house hold distances SBA with LOB x2 needing CGA > min assist when entering/exiting patio over raised threshold. Pt able to ascend/descend 12 steps to basement using hand rail and SPC CGA with cues for correct sequencing but no LOB and good safety awareness but recommendations from OT/TR pt not attempt at this time unless daughters present and assisting. Education and review done on safety in home which included removing multiple throw rugs, slowing pace, increased awareness of spouse's O2 tubing and maintaining easy access to environment which at present time clear and manageable. For more detailed information please see OT Home Visit Note on the 02/25/17. P: Will continue to see to address goals and plan of care.
--- NOTE | 2017-02-25 14:47 | NUR ---
Significant Event: Pt up in room with SBA, walker, more steady. Patricia. well. Pt went on home visit at 1300. Pt would also like family pass for this wilder. Pt took meds whole with water. Also on Thur. pt will go with to his Dr Wylie on outing. Pt emotional at times. Pt cooperative with cares. Follow up: activity, safety, outing pass
--- NOTE | 2017-02-25 15:19 | NUR ---
D: OT home visit completed on Saturday, February 25, 2017. I: Patient seen 1x, from 1301 to 1430 , for home visit assessment. Patient, Occupational therapist, Recreational therapist, patient's , patient's two daughters, and Occupational therapy student were present. R: Patient completed the following tasks with the amount of assist listed. Also listed below are recommendations to increase safety and independence. BEDROOM: Functional mobility - SBA with FWW Bed transfer - SBA with FWW Closet/[place] Usage - SBA with FWW Chair transfer - SBA with FWW Doorway access - SBA with FWW Phone access - I Bedside light access - I RECOMMENDATIONS: Remove all clutter from walkways, utilize log loader helper to gather items out of reach. BATHROOM: Functional mobility - SBA with FWW Toilet transfer - SBA with FWW Tub transfer - CGA with grab bar (3 grab bars present) Shower transfer - SBA with FWW Sink use - SBA with FWW Cupboard access - SBA with FWW Doorway access - SBA with FWW Medication Management - SBA RECOMMENDATIONS: Remove all clutter from walkways, keep items frequently used in reach, recommend utilizing walk-in shower vs bath tub at this time and remove all scatter rugs. KITCHEN: Functional mobility - SBA with FWW Chair transfer - SBA with FWW Cupboard access -SBA with FWW Refrigerator access - SBA with FWW Sink use - SBA with FWW Stove use - SBA with FWW RECOMMENDATIONS: Remove all clutter from walkways and remove all scatter rugs. Patient is able to access stove/oven however recommend patient not use d/t safety concerns with poor motor control in RUE. LIVING ROOM: Functional mobility - SBA with FWW Chair transfer - SBA with FWW Couch transfer - SBA with FWW Phone access - I TV operation - I RECOMMENDATIONS: Remove all clutter from walkways. HOME ENTRY: Functional mobility - SBA with FWW Door access - SBA with FWW Stair negotiation - CGA with cane and handrail RECOMMENDATIONS: Remove all clutter from walkway. EMERGENCY SITUATIONS: Phone Use - I Exit Plan - Intact Knowledge of emergency Number - Intact Safety and Judgement - Minimal impairment, recommend caregivers in home [employer] - Recommended ADDITIONAL INFORMATION: Washer/Dryer use - SBA with FWW, recommend assist for supervision Endurance Level - Patient tolerated home evaluation well with seated rest breaks PRN. Patient's home is wheelchair accessible. GENERAL RECOMMENDATIONS: Patient require use of FWW and cane in home for safety and increased I. Recommend assistance with bathing, cooking and cleaning in home. Recommend patient do not access basement without assist. Recommend patient not use stove/oven at this time. Recommend patient have 24/7 caregivers at this time for safety intially. Patient and patient's family agreeable to plan. P: Patient does agree to complete the above listed recommendations and home modifications. CAREY Platt 02/25/2017
--- NOTE | 2017-02-26 03:58 | NUR ---
Significant Event: Patient is alert and oriented. VSS. Back from outing last evening at 1999. Up one assist with GB/Walker. Denies pain or discomfort. Follow up: Dr Wylie with her on . Discharge on Friday.
--- NOTE | 2017-02-26 11:57 | NUR ---
D: TR progress note for 02/26/17. I: Pt seen for 2 units at 1105 in group session for education on relaxation techniques, stress/pain management, coping strategies, group participation and leisure education. R: Pt seen for functional skills building working on relaxation techniques, stress/pain management, and continued education on coping skills to promote recovery post discharge. Pt transferred sit > stand from recliner mod I, pivoted to WC with walker SBA and transferred into WC SBA with cues to slow pace. Pt actively participated in session, completed functional social communication skills independently which involved personal introduction of self and identification of way pt dealt with pain/stress prior to hospital- ization. Education completed by verbal discussion on the signs and symptoms the physical stress/pain can cause on the body and it's affects along with identification of coping strategies, relaxation techniques using music, breathing exercises and leisure activities. P: Will continue to see to address goals and plan of care.
--- NOTE | 2017-02-26 14:36 | NUR ---
Significant Event: Pt up in room with walker, SBA, steady, haylee. well. Pt c/o left posterior headache this afternoon, tylenol given at 1430. Pt emotional at times when discussion 's health situation and going to [facility]. Pt pleasant and cooperative with cares. pt plans for outing for 's doctor visit tomorrow am. Follow up: activity, outing pass needed
--- NOTE | 2017-02-27 03:38 | NUR ---
Significant Event:A/O. Ad rohan in room. Calls when requires assistance. MIld facial droop and some slurring words. Planning to go out to 's doctors appt this morning. Leaving at 0800, will go to breakfast after appt. Plans to discharge on Friday. VSS on room air. Bed alarm on. Call light n reach. Follow up:Outing. Discharge Friday.
--- NOTE | 2017-02-27 15:32 | NUR ---
Significant Event:Pt up and about room ad rohan, on outing with family this am by 0800, went to [place] with her , and then out for breakfast afterwards. Reported when she returned they had just ate, and was not hungrey for dinner as it had not been that long ago they ate. Assessment unchanged, note charting. No complaints of headache as of this time, continues to have some slurring of speech, expresses needs well, and facial droop. Pt has been pleasant and cooperative with plan of care. Follow up:pain control, plans for discharge tomorrow.
--- NOTE | 2017-02-28 04:38 | NUR ---
Significant Event:A/O. Ad orhan with walker in room. Slight garble to speech. some aphasia noted when tired. Moves well. Meds whole with water. VSS on room air. Discharging today. Follow up:Discharge
[2017-02-28] MEDS ORDERED: NORVASC5 MG PO (08:56)
[2017-02-28] MEDS ORDERED: ASPIRIN (CHILDR81 MG PO (08:58)
[2017-02-28] MEDS ORDERED: COLACE100 MG PO (08:59)
[2017-02-28] MEDS ORDERED: PEPCID20 MG PO (09:00)
[2017-02-28] MEDS ORDERED: PRINIVIL (ZESTR20 MG PO (09:02)
[2017-02-28] MEDS ORDERED: K-TAB 10MEQ10 MEQ PO (09:03)
[2017-02-28] MEDS ORDERED: DULCOLAX10 MG R (09:05)
[2017-02-28] MEDS ORDERED: MILK OF MA400 MG/5 M PO (09:06)
[2017-02-28] MEDS ORDERED: MYLICON OR GAS-80 MG PO (09:09)
--- NOTE | 2017-03-03 09:50 | NUR ---
D: Lab Aid Team Conference Follow up for 02/25/17 and Discharge Note for 02/28/17 I: Input from patient/family R: Met with: patient, family, Gabi Abraham HEALTH DATA ANALYST Discussed rehab plan, patient progress, discharge plan and estimated length of stay of d/c planned on 02/28/17 Patient/Family Preference: patient is in agreement. Anticipated discharge disposition: home with home health care. Education completed: Educationw as completed with patient regarding length of stay, progress in therapy and d/c plan. Assessment/Recommendation: Team recommends d/c on 02/28/17. P: Case Coordination: Shayy is a 86 year old woman from [place], [place] admitted after a stroke. Has good family support. Home health was set up through [facility]. No other needs identified. Will call patient next week to see how she is doing post discharge.
== END 2017-02-28 10:55 | disposition disaster alternative care site (69) | DRG 57 ==
LOC: GIRP 10:26
PROVIDERS: ADMIT Physical Medicine & Rehabilitation
DX: I69.151 Hemiplegia and hemiparesis following nontraumatic intracerebral hemorrhage affecting right dominant side (principal); I48.91 Unspecified atrial fibrillation; I69.128 Other speech and language deficits following nontraumatic intracerebral hemorrhage; R26.81 Unsteadiness on feet; Z91.81 History of falling; I10 Essential (primary) hypertension; E78.5 Hyperlipidemia, unspecified; Z79.01 Long term (current) use of anticoagulants; Z74.1 Need for assistance with personal care; Z87.820 Personal history of traumatic brain injury; I69.192 Facial weakness following nontraumatic intracerebral hemorrhage; I25.10 Atherosclerotic heart disease of native coronary artery without angina pectoris; Z90.13 Acquired absence of bilateral breasts and nipples
CPT/HCPCS: G0009; J1650